=== PATIENT | female | born 1930 | race Caucasian/White ===

== ENCOUNTER → 2017-01-14 | Outpatient (CLI) | payer OTHER, BC ==
[~2017-01-14] MED LIST: ADULT LOW DOSE81 MG PO; APAP500 PO; AZITHROMYCIN 2250 MG; BIOTIN2500 MCG PO; CALCIUM 500 +1 EAC5 PO; CARBIDOPA-LEVO1 EAC1 PO; CELEBREX 200 M200 MG PO; CENTRUM SILVER1 EAC4 PO; COQ-10100 MG PO; HAIR, SKIN & N1 EAC1 PO; LEVOTHYROXINE0.05 MG PO; MIRALAX17 GM PO; NEURONTIN300 MG PO; NITROFURANTOIN100 MG PO; NORVASC2.5 MG PO; NORVASC5 MG PO; OMEPRAZOLE40 MG PO; PREDNISONE 10 M10 M1 PO; PRILOSEC 20 MG20 MG PO; SYNTHROID50 MCG PO; TRAMADOL 50 MG50 MG PO; ULTRAM 50MG TAB50 MG PO; XARELTO10 MG PO; ZOCOR 20 MG TAB20 M1 PO
== END ==
LOC: MRI 12:35
DX: S83.242A Other tear of medial meniscus, current injury, left knee, initial encounter (principal); M47.817 Spondylosis without myelopathy or radiculopathy, lumbosacral region; M62.81 Muscle weakness (generalized)

== ENCOUNTER 2017-08-13 10:50 | Inpatient (IN) | payer OTHER, BC ==
[~2017-08-13] VITALS: Ht 147.3 cm; Wt 46.3 kg
--- NOTE | ~2017-08-13 | HC ---
[facility] [address] CONSULTATION Name: JAIME REYNOLDS Room #: 515-P [facility] IN M.R.#: [id number] Admission: 08/13/17 Attend Phys: Gene Michaud MD Discharge: Date of : [birth year] Report #: [id number] THIS REPORT FOR: //name// CC: Gene Redmond NEUROBEHAVIORAL STATUS EXAM DATE OF CONSULTATION: 08/19/2017. ATTENDING PHYSICIAN: Gene Michaud M.D. PROGRAM HOST: Ayo Mueller, PhD. CLINICAL PRESENTATION: The patient is an 87-year-old female admitted to [facility] rehabilitation unit for a comprehensive inpatient rehabilitation program to improve functional mobility and activities of daily living and self-care secondary to deficits associated with Parkinson's disease. Her diagnoses on admission include rhabdomyolysis, dehydration, urinary tract infection, gait instability with fall at her home, multiple contusions and abrasions, history of neuropathic pain, hypothyroidism and hypertension. The patient had a fall in her home and was found by her tobacco primer machine operator. She is reported to have been down approximately 9-10 hours. A complete description of her medical condition, history and medications can be found in her medical record. Neuropsychological consultation was requested to provide assistance in the assessment of cognitive and emotional status and to provide recommendations and services. Prior to this most recent medical event, she was living independently in her own home. The patient utilizes a kiln head house operator 2 times a week. She lives alone in the home. There is a niece reported to have been involved in her care. The patient was seen in 2015 for a knee arthroplasty and subsequent deterioration from Parkinson's disease. She has 3 stepchildren. The patient was at age 49 and has no biological children. Two stepchildren are reported to be involved in her care. The patient's about 3 years ago. She is a high school graduate. 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 TECHNIQUES UTILIZED: Clinical interview, review of medical records, staff consultation and behavioral observation, mini mental status exam 2 standard version and clock drawing. EXAMINATION FINDINGS: The patient was alert during the interview. However, she was irritable and initially oppositional to participating in the assessment. However, she eventually agreed to comply with the assessment. She does not describe auditory or visual hallucinations. There is no evidence of thought disorder. The patient shows auditory comprehension within normal limits. There [address] [address] CONSULTATION Name: RODOLFOJAIME J Room #: 515-P [facility] IN ..#: [id number] Admission: 08/13/17 Attend Phys: Gene Michaud MD Discharge: Date of : [birth year] Report #: [id number] is no evidence of aphasia. Her thoughts are logical and goal oriented. The patient is irritable. She describes frustration about limitations on her freedom of movement. She does not report difficulty with sleep, appetite, memory or word finding. Cognitive deficits are associated to normal changes that she attributes to age. The patient does report increased fatigue and subjective feelings of depression and acknowledges some irritability in regard to the limit her limitations from Parkinson's disease. Decreased insight into the extent of cognitive dysfunction is suggested. Her performance on the MMSE 2 brief version is in the mild range of impairment with a raw score of 13-16, T score of 38, percentile rank of 12. She was 3/3 for initial registration, 5/5 for orientation to time and place. She was 0/3 for immediate recall of 3 items after a brief time delay and distraction. Her performance on the MMSE 2 standard version was 23 of 30, which is a T score of 36 and percentile rank of 8, which is in the borderline range. She was 2/5 for serial sevens, 2/2 for naming, 1/1 for repetition, 3/3 for auditory comprehension. She could read and follow a single command. She is also able to write a sentence. The patient was unable to copy a simple geometric design. The patient was able to draw the face of a clock and place the numbers appropriately. However, she was unable to accurately place the hands of a clock at a designated time. The patient is showing deficits in immediate memory, sustained attention, concentration and visual spatial organization. Impaired functioning and clock drawing is often seen with deficits within the medial temporal lobe and semantic knowledge. DIAGNOSTIC IMPRESSION: Neurocognitive disorder, most likely due to or possibly due to Parkinson's disease, with decreased insight and irritability -- extent to be determined, likely in the mild to moderate range. Adjustment disorder with anxiety and depressed mood. RECOMMENDATIONS: The patient is presenting with increased irritability, likely associated with diminished sense of control over the environment and as a result of Parkinson's disease and increased need for environmental support. She is unlikely to ask for the help that is needed. Increased environmental support will be necessary for her to maintain safety. The patient will likely require assistance in the management of medications as well as nutrition and financial decision making in order to maintain safety. She will benefit from opportunities to have increased influence over her environment. Verbal praise and complements about participation in therapies and an emphasis on the strengths that she shows during therapies will also improve her compliance. [facility] [address] [place] [address] CONSULTATION Name: JAIME REYNOLDS Room #: 515-P ADM IN M.R.#: [id number] Admission: 08/13/17 Attend Phys: Gene Michaud MD Discharge: Date of : [birth year] Report #: [id number] Thank you very much for allowing me to provide the consultation on this patient. By: [id number] Ayo Mueller, PhD /nt
--- NOTE | ~2017-08-13 | H ---
[facility] [place] [address] HISTORY AND PHYSICAL Name: JAIME REYNOLDS Room #: 515-P ADM IN .R.#: [id number] Admission: 08/13/17 Attend Phys: Gene Michaud MD Discharge: Date of : [birth year] Report #: [id number] THIS REPORT FOR: //name// CC: Gene Redmond DATE OF SERVICE: 08/14/2017 HISTORY OF PRESENT ILLNESS: The patient is an 87-year-old white female who has moderate to severe Parkinson's disease and lives in her own home. She had a fall and was unable to get up and was admitted to the acute hospital. Her mechanical integrity specialist had found her. She may have been down as long as 9-10 hours. She was diagnosed with a urinary tract infection with dehydration and mild rhabdomyolysis. She had an abnormal EKG and had a normal echo. Her urine grew out Klebsiella and she was treated with antibiotics. She was noted to have multiple contusions and abrasions from the fall. She was noted to have a significant functional decline and has now been admitted for an acute in-hospital inpatient rehabilitation stay. PAST MEDICAL HISTORY: Parkinson's disease. She has had a prior total knee replacement, history of transitional cell CA of the bladder, cataract surgery of both eyes, osteoporosis, hypertension, hypothyroidism. MEDICATIONS: Please see the full medication listing. Each of these was individually reconciled and includes vitamins herbals and supplements. ALLERGIES: ADHESIVE TAPE, CODEINE, RECORDED HISTORY OF SULFA ALLERGY. SOCIAL HISTORY: , lives alone in a house, 3 steps in, 16 inside, has a executive housekeeper 2 times a week, niece involved. This is noted to be a split level house with two stair glides. HABITS: Remote tobacco history. Some social ETOH usage. REVIEW OF SYSTEMS: No complaints of chest pain, shortness of breath, abdominal discomfort. She has some discomfort with her multiple contusions. She has a prior history of some neuropathic pain and was on Neurontin. FAMILY HISTORY: Noncontributory. PHYSICAL EXAMINATION: GENERAL: An 87-year-old white female in no obvious distress. VITAL SIGNS: Last recorded temperature 98.9, pulse 84, respirations 18, blood pressure 168/82. GENERAL: The patient is alert. HEENT: Appeared to be benign except for some masked facies. [address] [address] HISTORY AND PHYSICAL Name: JAIME REYNOLDS Phylicia Room #: 515-P [facility] IN M.R.#: [id number] Admission: 08/13/17 Attend Phys: Gene Michaud MD Discharge: Date of : [birth year] Report #: [id number] CHEST: Sounded clear to auscultation. CARDIOVASCULAR: Regular rate and rhythm. ABDOMEN: Bowel sounds positive, nontender. GENITOURINARY AND RECTAL: Deferred. EXTREMITIES: She does have some cogwheeling bilaterally involving the wrists and elbows. She does have some tremors noted. Strength is a grade 4-/5. Lower extremities, prior knee incision is well healed. Strength is grade 3+ to 4-/5. She does have some bradykinesia and slowness of movement. She is contact guard sit to stand and needs assistance for short distance walker ambulation. ASSESSMENT: An 87-year-old white female with the following problem list: 1. Parkinson's disease. 2. Rhabdomyolysis. 3. Dehydration. 4. Urinary tract infection. 5. Gait instability with fall at home. 6. Multiple contusions and abrasions. 7. History of neuropathic pain for which she has been on Neurontin. 8. Hypothyroidism. 9. Hypertension. PLAN: The patient is admitted for acute in-hospital inpatient rehabilitation. From a postadmission physician evaluation perspective, there are no relevant changes since the preadmission screening. Please see the above review of prior and current medical and functional conditions and comorbidities. Please see the patient's previous and current functional status. As far as risk of complications, the patient has multiple medical comorbidities as noted above. Initial plan of care involves the interdisciplinary acute inpatient rehabilitation program with the goal of maximizing the patient's functional independence. Measurable functional goals would be for the patient to improve her overall strength and endurance, functional mobility and ADLs, so that she can return back to the home setting. Prognosis is reasonably good with estimated length of stay probably at least 7-10 days and potentially longer pending progress. Potential barriers would include the patient's medical comorbidities and decreased functional status. The patient meets diagnostic criteria for an acute in-hospital inpatient rehabilitation stay. She meets medical necessity criteria. She does have the tolerance for an acute rehab stay and has appropriate discharge goals back to the home setting. <ELECTRONICALLY SIGNED> By: Gene Michaud MD 08/23/17 1108 1115 1135 Gene Michaud MD /[facility]
--- NOTE | ~2017-08-13 | PLAN ---
[facility] [place] [address] REHAB UNIT PLAN OF CARE Name: JAIME REYNOLDS Room #: 515-P ADM IN M.R.#: [id number] Admission: 08/13/17 Attend Phys: Gene Michaud MD Discharge: Date of : [birth year] Report #: [id number] THIS REPORT FOR: //name// CC: Gene Redmond DATE OF SERVICE: 08/16/2017 SUBJECTIVE: The patient is seen back today in followup. She is in no distress. Temperature 97.9, pulse 77, respirations 20, blood pressure 125/92. She has been involved in therapies with transfers min assist. Gait min assist 150 feet front-wheeled walker. In occupational therapy; lower body dressing is min assist, upper body dressing was mod assist. ASSESSMENT: 1. Parkinson's disease. 2. Rhabdomyolysis. 3. Dehydration. 4. Urinary tract infection. 5. Gait instability with fall at home. 6. Multiple contusions and abrasions. 7. History of neuropathic pain for which she has been on Neurontin. 8. Hypothyroidism. 9. Hypertension. PLAN: The overall plan of care, this is based on the preadmission screen, post-admission physician evaluation and information garnered from therapy assessments. 1. Estimated length of stay is probably at least 7-10 days and likely longer as warranted. 2. Medical prognosis is reasonably good. 3. Anticipated interventions includes the interdisciplinary acute inpatient rehabilitation program with the goal of maximizing the patient's functional independence, so that she can hopefully return back to her prior living situation. PT and OT are involved. Nursing is assisting regarding medication management, skin care prophylaxis, bowel and bladder issues and nursing education. The tour consultant physicians are involved. 4. Anticipated functional outcomes would be for the patient to become modified independent with transfers, mobility and ADL issues at least at the walker level. 5. Discharge destination is back home where she lives alone in a house. Niece is involved. 6. Expected therapy by discipline includes PT and OT 1-1/2 hours per day each [address] [address] REHAB UNIT PLAN OF CARE Name: JAIME REYNOLDS Room #: 515-P [facility] IN ..#: [id number] Admission: 08/13/17 Attend Phys: Gene Michaud MD Discharge: Date of : [birth year] Report #: [id number] five days a week throughout the duration of the acute inpatient rehabilitation stay. <ELECTRONICALLY SIGNED> By: Gene Michaud MD 08/23/17 1108 [id number] [id number] Gene Michaud MD /[facility]
[~2017-08-13 10:50] MED LIST changes: +PANTOPRAZOLE SO40 M1 PO
[2017-08-13] MEDS ORDERED: CEFUROXIME250 MG PO (16:04)
[2017-08-13] MEDS ORDERED: NORVASC2.5 MG PO (16:05)
[2017-08-13 16:34] VITALS: BP 146/56
[2017-08-13 20:04] VITALS: BP 178/84
[2017-08-13 22:00] VITALS: BP 168/82
[2017-08-14 06:26] LABS: HEMATOCRIT 36.7 % (37.0-47.0); HEMOGLOBIN 12.1 gm/dL (12.0-15.0); MCH 30.8 pg (26.0-34.0); MCHC 32.9 g/dL (28.0-37.0); MCV 93.7 fL (80.0-100.0); RBC 3.91 mil/uL (4.20-5.00); RDW 13.7 % (10.5-14.5); WBC 8.7 thou/uL (4.0-11.0)
[2017-08-14 06:38] LABS: CALCIUM 10.5 mg/dL (8.5-10.1); CREATININE 0.8 mg/dL (0.6-1.0); POTASSIUM 3.9 mmol/L (3.5-5.1)
[2017-08-14 08:56] VITALS: BP 134/63
[2017-08-14 09:27] LABS: CALCIUM 9.5 mg/dL (8.5-10.1); CREATININE 0.7 mg/dL (0.6-1.0); PHOSPHORUS 3.4 mg/dL (2.5-4.9)
[2017-08-14 21:25] VITALS: BP 151/58
[2017-08-15 05:07] LABS: CALCIUM IONIZED* 5.6 mg/dL (4.5-5.6)
[2017-08-15 08:38] VITALS: BP 149/66
[2017-08-15 19:33] VITALS: BP 125/92
[2017-08-16 08:00] VITALS: BP 138/59
[2017-08-16 21:03] VITALS: BP 147/66
[2017-08-17 07:30] VITALS: BP 159/54
[2017-08-17 20:00] VITALS: BP 123/51
[2017-08-17 20:19] VITALS: BP 123/51
[2017-08-18 08:00] VITALS: BP 120/35
[2017-08-18 09:27] VITALS: BP 121/51
[2017-08-18 20:40] VITALS: BP 119/57
[2017-08-19 08:00] VITALS: BP 130/57
[2017-08-19 20:03] VITALS: BP 124/52
[2017-08-20 07:30] VITALS: BP 112/62
[2017-08-20 20:06] VITALS: BP 95/45
[2017-08-21 08:10] VITALS: BP 176/66
[2017-08-21 20:00] VITALS: BP 139/62
[2017-08-21 20:20] VITALS: BP 139/62
[2017-08-22 08:15] VITALS: BP 142/61
[2017-08-22] MEDS ORDERED: COLACE 100 MG100 MG PO (10:49)
[2017-08-22] MEDS ORDERED: VITAMIN D1000 UNI1 PO (10:50)
[2017-08-22 15:03] LABS: CALCIUM 9.4 mg/dL (8.5-10.1); CREATININE 0.7 mg/dL (0.6-1.0); POTASSIUM 4.2 mmol/L (3.5-5.1)
[2017-08-22 15:55] LABS: URINE BILIRUBIN NEGATIVE (Negative); URINE BLOOD NEGATIVE (Negative); URINE COLOR YELLOW; URINE GLUCOSE-RANDOM* NEGATIVE (Negative); URINE KETONES NEGATIVE (Negative); URINE PROTEIN (DIPSTICK) NEGATIVE (Negative); URINE SPECIFIC GRAVITY <= 1.005 (1.003-1.035); URINE UROBILINOGEN 0.2 E.U./dl (0.2-1.0)
[2017-08-22 15:57] LABS: URINE LEUKOCYTES-REFLEX TRACE (Negative)
[2017-08-22 20:14] VITALS: BP 106/41
[2017-08-23 07:30] VITALS: BP 102/57
[2017-08-23 09:33] VITALS: BP 102/57
[2017-08-23 11:55] VITALS: BP 102/57
[2017-08-23 12:02] VITALS: BP 102/57
[2017-08-23 13:08] VITALS: BP 102/57
== END 2017-08-23 13:14 | disposition home health service (06) | DRG 57 ==
LOC: ENTRNSPT 08-23 12:58 → EDTRNSPTSTS 08-23 13:01
PROVIDERS: Internal Medicine; Physical Medicine & Rehabilitation
DX: G20 Parkinson's disease (principal); M62.82 Rhabdomyolysis; N39.0 Urinary tract infection, site not specified; E86.0 Dehydration; T14.8XXA Other injury of unspecified body region, initial encounter; E03.9 Hypothyroidism, unspecified; I10 Essential (primary) hypertension; R41.9 Unspecified symptoms and signs involving cognitive functions and awareness; F43.20 Adjustment disorder, unspecified; F41.9 Anxiety disorder, unspecified; F39 Unspecified mood [affective] disorder; Z96.659 Presence of unspecified artificial knee joint; M81.0 Age-related osteoporosis without current pathological fracture; Z60.2 Problems related to living alone; D64.9 Anemia, unspecified; E83.52 Hypercalcemia; B96.1 Klebsiella pneumoniae [K. pneumoniae] as the cause of diseases classified elsewhere; Z88.2 Allergy status to sulfonamides; Z88.8 Allergy status to other drugs, medicaments and biological substances; Z85.51 Personal history of malignant neoplasm of bladder; Z98.42 Cataract extraction status, left eye; Z98.41 Cataract extraction status, right eye; Z88.6 Allergy status to analgesic agent; Z79.899 Other long term (current) drug therapy; W18.39XA Other fall on same level, initial encounter; Y93.89 Activity, other specified; Y92.89 Other specified places as the place of occurrence of the external cause; Y99.8 Other external cause status
CPT/HCPCS: 10112

== ENCOUNTER 2018-03-06 21:35 | Inpatient (IN) | payer OTHER, BC ==
[~2018-03-06] VITALS: Ht 147.3 cm; Wt 41.3 kg
--- NOTE | ~2018-03-06 | 2DMMODE ---
[facility] [address] [place] [address] 2 D/M-MODE ECHOCARDIOGRAM Name: RODOLFOJAIME J Room #: 430-P ADM IN [facility]#: [id number] Admission: 03/06/18 Attend Phys: Joseph Redmond MD Discharge: Date of : [birth year] Date of Service: 03/07/18 1602 Report #: [id number] THIS REPORT FOR: //name// APPROVED REPORT Study performed: 03/07/2018 15:01:30 EXAM: Comprehensive 2D, Doppler, and color-flow Echocardiogram Patient Location: Bedside Room #: 430 Status: routine BSA: 1.29 HR: 78 bpm BP: 166/48 mmHg Other Information Study Quality: Adequate Indications Aortic Valve Disease 2D Dimensions RVDd: 29.58 mm LVEF(%): 60.01 (>50%) IVSd: 12.52 (7-11mm) LVOT Diam: 17.82 (18-24mm) LVDd: 32.75 mm PWd: 13.80 (7-11mm) Ascending Ao: 25.74 (22-36mm) LVDs: 22.60 (25-40mm) Aortic Root: 22.83 mm IVC: 13.00 mm Cabrera's LVEF: 60.01 % Volumes Left Atrial Volume (Systole) Single Plane 4CH: 28.68 mL Single Plane 2CH: 24.31 mL LA ESV Index: 27.00 mL/m2 Aortic Valve AoV Peak Pino.: 2.16 m/s AO Peak Gr.: 18.65 mmHg LVOT Max P.72 mmHg AO Mean Gr.: 9.68 mmHg LVOT Mean P.85 mmHg AO V2 Mean: 1.44 m/s LVOT Max V: 0.96 m/s AO V2 VTI: 47.20 cm LVOT Mean V: 0.63 m/s JUVENTINO (VTI): 1.18 cm2 LVOT V1 VTI: 22.38 cm JUVENTINO Vmax: 1.11 cm2 SV (LVOT): 55.81 mL [facility] [place] [address] 2 D/M-MODE ECHOCARDIOGRAM Name: JAIME REYNOLDS Room #: 430-P [facility] IN [facility].#: [id number] Admission: 03/06/18 Attend Phys: Joseph Redmond MD Discharge: Date of : [birth year] Date of Service: 03/07/18 1602 Report #: [id number] Mitral Valve E/A Ratio: 0.8 MV Decel. Time: 347.11 ms MV E Max Pino.: 0.90 m/s MV A Pino.: 1.06 m/s MV PHT: 100.66 ms IVRT: 124.57 ms Pulmonary Valve PV Peak Pino.: 0.82 m/s PV Peak Gr.: 2.70 mmHg Pulmonary Vein P Vein S: 0.53 m/s P Vein A: 0.22 m/s P Vein D: 0.21 m/s P Vein A Dur.: 124.6 msec P Vein S/D Ratio: 2.52 Tricuspid Valve TR Peak Pino.: 2.16 m/s TR Peak Gr.: 18.65 mmHg PA Pressure: 24.00 mmHg Left Ventricle The left ventricle is normal size. There is normal LV segmental wall motion. Mild concentric left ventricular hypertrophy. The left ventricular systolic function is normal. The left ventricular ejection fraction is within the normal range. LVEF is 55-60%. Grade I - abnormal relaxation pattern. Right Ventricle The right ventricle is normal size. The right ventricular systolic function is normal. Atria The left atrium size is normal. The right atrium size is normal. Aortic Valve Aortic valve is calcified. No aortic regurgitation is present. Mild aortic stenosis. Mitral Valve The mitral valve leaflets are mildly calcified and thickened. Trace mitral regurgitation. No evidence of mitral valve stenosis[place] [address] 2 D/M-MODE ECHOCARDIOGRAM Name: RODOLFOJAIME Room #: 430-P [facility] IN M.R.#: [id number] Admission: 03/06/18 Attend Phys: Joseph Redmond MD Discharge: Date of : [birth year] Date of Service: 03/07/18 1602 Report #: [id number] The tricuspid valve is normal in structure. There is trace tricuspid regurgitation. Estimated PAP 24 mmHg. There is no pulmonary hypertension. Pulmonic Valve The pulmonary valve is normal in structure. There is no pulmonic valvular regurgitation. Great Vessels The aortic root is normal in size. IVC is normal in size and collapses >50% with inspiration. Pericardium There is no pericardial effusion. <Conclusion> The left ventricular systolic function is normal. Mild concentric left ventricular hypertrophy. There is normal LV segmental wall motion. LVEF is 55-60%. Mild diastolic dysfunction Aortic valve is calcified. Mild aortic stenosis, no insufficiency. The mitral valve leaflets are mildly calcified and thickened. Trace mitral regurgitation. There is trace tricuspid regurgitation. Estimated pulmonary artery pressure of 24 mmHg. There is no pericardial effusion. <ELECTRONICALLY SIGNED> By: Inocente Colón MD, FACC 03/07/18 160 01 01 Inocente Colón MD, FACC /INF
--- NOTE | ~2018-03-06 | H ---
[facility] [place] [address] HISTORY AND PHYSICAL Name: JAIME REYNOLDS Room #: 430-P ADM IN M.R.#: [id number] Admission: 03/06/18 Attend Phys: Josehp Redmond MD Discharge: Date of : [birth year] Report #: [id number] THIS REPORT FOR: //name// CC: Gene Redmond DATE OF SERVICE: 03/07/2018 CHIEF COMPLAINT: Multiple falls. HISTORY OF PRESENT ILLNESS: The patient is an 87-year-old female who was sent to the Emergency Room after she called me and told me that she had been falling down and the paramedics have been out to see her several times and she was now having problems with shaking chills. She actually could not remember how many times she had fallen lately, but the current story is that she has fallen at least 5 times in the last 3 days. She is unable to get herself up and I was not notified of any of these falls until the patient herself called me the afternoon of this admission. I called her niece who got in touch with further family members and they brought her to the Emergency Room for further evaluation and treatment. The patient was seen there and evaluated and preliminary workup looks fairly benign, other than multiple areas of trauma and no overt fractures. The patient, however, is unable to get up from the gurney and is unable to ambulate while in the Emergency Room. She is admitted for further evaluation and treatment. PAST MEDICAL HISTORY: Lengthy and includes severe lumbar radiculopathy, especially on the right side from neural foraminal stenosis and osteoarthritis. She has been seen multiple times in the Pain Clinic and by Orthopedic and Neurosurgical specialist in the past, who felt that she was not a good candidate for surgery. She has been using a roller walker for ambulation at least 5 years. In the last 2 years, she moved from her [facility] home into a [address]. She lives in an independent apartment at this time. Other past medical history includes history of recurrent bladder cancer. She is followed by Dr. Gene Perry for this. Hysterectomy for benign reasons. Osteoarthritis in multiple sites. 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 Gastroesophageal reflux disease and hiatal hernia. Parkinson disease for at least 5 years. Colonoscopies in the past, cataract surgeries in the past and right knee replacement in 2015. Carotid occlusive disease bilaterally, no prior interventions. She has evidence of myocardial infarction on EKGs going back to several years, but echocardiogram looked normal the last time it was assessed. ALLERGIES: THE PATIENT IS ALLERGIC TO SULFA, ANTIBIOTICS AND TO ADHESIVE TAPE AND CODEINE. THE LATTER CAUSES HER NAUSEA AND VOMITING. THE SULFA CAUSES HER TO HAVE A RASH. Interestingly, she tolerates Celebrex without a problem. [address] [address] HISTORY AND PHYSICAL Name: JAIME REYNOLDS Phylicia Room #: 430-P [facility] IN ..#: [id number] Admission: 03/06/18 Attend Phys: Joseph Redmond MD Discharge: Date of : [birth year] Report #: [id number] MEDICATIONS: Her medications at time of admission includes pantoprazole, amlodipine, docusate, cholecalciferol, Celebrex, acetaminophen, levothyroxine, Sinemet 10/100, multivitamin, gabapentin, MiraLax and tramadol. FAMILY HISTORY: Not contributory. SOCIAL HISTORY: The patient is after her committed suicide over 5 years ago. She smoked in the very distant past, but she has no history of problems with alcohol or recreational drugs and does not use any of them at this time. REVIEW OF SYSTEMS: The patient reports she has had increasing dizziness lately and is concerned that "that little pink pill" is the cause. She states that she was recently given that medicine by her neurologist and it was taken away because she was having vomiting and recently, it started up again. She cannot tell me the name of the medicine; I am suspicious that it is in fact gabapentin. No headaches or vision changes. No difficulties with swallowing or speaking. No shortness of breath or chest pain. She has chronic low back pain, which is unchanged. She has chronic weakness in the right lower extremity. She has chronic difficulty with ambulation, both from Parkinson disease and the lumbar radiculopathy. She reports a significant weight loss. Her current weight was 91 pounds in the Emergency Room and she states that 5 years ago, she weighed 126 pounds, at the time of her 's . She was unaware that she had lost all this weight. PHYSICAL EXAMINATION: VITAL SIGNS: In the Emergency Room showed that her pulse oximetry supine is 100% on room air, respirations 22 per minute, pulse 66, blood pressure 127/96 and the temperature is 36.4 degrees Celsius. GENERAL: The patient is a pleasant, but tired-appearing elderly white female. SKIN EXAMINATION: Shows general dryness and diffuse developing alopecia. HEENT: The extraocular muscles are intact. The oropharynx is dry and pink. No lesions, no exudates. Sinuses are nontender. Hearing is grossly normal. She has a very soft voice chronically. NECK: Without adenopathy or thyromegaly. Some tenting of the skin is noted. She has a distinct left carotid bruit, but not on the right. No adenopathy is palpated in the neck, supraclavicular, axillary or groin areas. LUNGS: Clear to auscultation bilaterally. CARDIAC EXAMINATION: Reveals a regular rhythm with a 1-2/6 systolic ejection murmur at the apex. ABDOMEN: Soft. Bowel sounds are present. Abdomen is flat. No visceromegaly or masses are noted. EXTREMITIES: There is no cyanosis, clubbing or peripheral edema. She has generalized weakness in the lower extremities, much more so on the right than the left and she has fairly good welder apprentice arc strength in both upper extremities. No [facility] [address] [place] [address] HISTORY AND PHYSICAL Name: JAIME REYNOLDS Phylicia Room #: 430-P [facility] IN ..#: [id number] Admission: 03/06/18 Attend Phys: Joseph Redmond MD Discharge: Date of : [birth year] Report #: [id number] focal deficits of sensation in upper or lower extremities. Gait could not be assessed because the patient was too weak to hold herself up. There is no Babinski sign on either side. Romberg could not be tested. RECTAL EXAMINATION: Not performed today. BREAST EXAMINATION: Not performed today. LABORATORY DATA: In the Emergency Room, urinalysis was normal. CBC with differential showed 8300 white blood cells with an ANC of 5700. Her hemoglobin was 10.2, with a normal of 12-15. Her MCV was normal at 93.4 with an RDW of 13.6, also in the normal range. The platelet count was 237,000. Differential looked fairly normal with 68 segs, 23 lymphs, 6.3 monocytes, 1.4 eos and 1.2 basophils. The basic metabolic panel showed sodium of 139, potassium 3.4, chloride of 103, bicarbonate of 26, BUN of 25, creatinine 0.8 with an anion gap of 10, nonfasting glucose of 135 and calcium of 10.0. Albumin was not measured. The estimated GFR was 68. Troponin was less than 0.04. Chest x-ray was obtained that showed no acute cardiopulmonary abnormalities. The EKG in the Emergency Room showed sinus rhythm with a rate of 79 beats per minute, ventricular trigeminy and anteroseptal infarct that was age indeterminate and mention of comparison with prior EKG in 12/2017 showed that PVCs were no present. The physician's diver assistant in the Emergency Room ordered an MRI scan of the lumbar spine without contrast and the impression showed "severe multilevel lumbar spondylosis, chronic, without acute fracture or other acute process identified". ASSESSMENT AND PLAN: 1. Frequent falls with general debility and weakness - this may all be due to advanced Parkinson disease or she may have a secondary issue. I have discontinued the gabapentin for fear that it might be part of the problem. I feel that the patient has been maryjo so far that she has not sustained any major damaging injuries, but she is certainly not safe to return to an independent living apartment at this time. Therefore, I have made her a full admission and plan to look for other treatable causes while starting her on a higher dose of Sinemet and requesting consultation with a occupational rehabilitation aide and starting physical and occupational therapy and a cognitive evaluation with speech therapy. 2. Right foot pain without obvious problem. We will get an x-ray of her right foot. 3. Approximately 30-pound weight loss in the last 5 years, unintentional - supplements have been added to the patient's dietary regimen. I will have her weight daily to see how she does with more supportive care in the short term. It is clear to me, however, that she simply cannot continue in an independent facility. She will, at the very least, need an assisted care facility provided she can improve to that level. I spoke with the patient at length about this and her best current options are either an inpatient rehab stay or a detention unit stay. See consult with Dr. Gene Michaud for further information regarding this decision-making process. [facility] [place] [address] HISTORY AND PHYSICAL Name: JAIME REYNOLDS Room #: 430-P ADM IN M.R.#: [id number] Admission: 03/06/18 Attend Phys: Joseph Redmond MD Discharge: Date of : [birth year] Report #: [id number] 4. History of bladder cancer. I did fern picker the phone and called Dr. Perry's office and canceled her appointment today. This can be rescheduled at a later date. 5. Lumbar radiculopathy, right greater than left side. 6. Left carotid bruit. We will get carotid Doppler for followup. She does have known carotid occlusive disease, although it has not been severe enough to warrant intervention. She also has subclavian stenosis and proximal vertebral artery stenosis in the past. Vertebrobasilar insufficiency is not an unreasonable consideration in this unfortunate patient's circumstances. 7. Hypertension. We will obtain orthostatics to make sure that the patient has not developed some sort of dysautonomia, requiring less strict blood pressure-lowering therapies. SUMMARY: In addition to the aforementioned testing, the patient will be having echocardiogram, carotid Doppler, EEG, nocturnal and ambulatory oximetry as well as be observed for changes in her medication regimen. <ELECTRONICALLY SIGNED> By: Joseph Redmond MD 03/10/18 [id number] Joseph Redmond MD /tamara
--- NOTE | ~2018-03-06 | EKG ---
[place] [address] [facility] [place] [address] ELECTROCARDIOGRAM REPORT Name: RODOLFOJAIME Room #: 430-P ADM IN ..#: [id number] Admission: 03/06/18 Attend Phys: Joseph Redmond MD Discharge: Date of : [birth year] Report #: [id number] THIS REPORT FOR: //name// [facility] ED Test Date: 2018-03-06 Test Time: 22:38:28 Pat Name: JAIME REYNOLDS Department: Room: Gender: F Associate Justice: ELDON : 1930 Requested By: Jose A Osorio Order Number: [id number] MD: Inocente Colón Measurements Intervals [place] Rate: 79 P: 107 PA: 168 QRS: 50 QRSD: 87 T: 43 QT: 388 QTc: 445 Interpretive Statements Sinus rhythm Ventricular trigeminy Anteroseptal infarct, age indeterminate Artifact in lead(s) I,II,aVF,V1,V2,V4,V5,V6 Compared to ECG 01/20/2018 16:07:36 Ventricular premature complex(es) now present Electronically Signed On 03-07-2018 8:32:20 CDT by Inocente Colón [email or web address] <ELECTRONICALLY SIGNED> By: Inocente Colón MD, [facility] 03/07/18 0832 [id number] 37 Inocente Colón MD, [facility] /EPI
--- NOTE | ~2018-03-06 | EEG ---
[facility] [place] [address] ELECTROENCEPHALOGRAM Name: JAIME REYNOLDS Room #: 430-P [facility] IN M.R.#: [id number] Admission: 03/06/18 Attend Phys: Joseph Redmond MD Discharge: Date of : [birth year] Report #: [id number] THIS REPORT FOR: //name// CC: Joseph Redmond MD HISTORY: The patient is an 87-year-old female with weakness. An EEG is requested for further evaluation. DESCRIPTION: The awake record consists of symmetric kwe-aj-wwprybqs amplitude 4-iaxlo-wqj-second posterior dominant rhythm, which attenuates with eye opening. During the recording, photic stimulation was performed and was non-activating. Stage I sleep was characterized by attenuation of the background record. No focal abnormalities or epileptiform discharges were noted. Stage II sleep was not recorded. IMPRESSION: This is an abnormal adult awake to stage I sleep record because of mild slowing of the posterior dominant rhythm. This record is consistent with mild diffuse cerebral dysfunction and is a nonspecific finding. No focal abnormalities or epileptiform discharges were noted. By: [id number] Nahed Islas DO /nt
[~2018-03-06 21:35] MED LIST changes: +CEFUROXIME250 MG PO; +COLACE 100 MG100 MG PO; +VITAMIN D1000 UNI1 PO
[2018-03-06 21:52] VITALS: BP 127/96
[2018-03-06 22:21] LABS: ABSOLUTE NEUTROPHILS 5.7 thou/uL (1.4-8.2); BASOPHILS 1.2 % (0.0-2.0); EOSINOPHILS 1.4 % (0.0-3.0); HEMATOCRIT 30.2 % (37.0-47.0); HEMOGLOBIN 10.2 gm/dL (12.0-15.0); LYMPHOCYTES 23.1 % (24.0-44.0); MCH 31.7 pg (26.0-34.0); MCV 93.4 fL (80.0-100.0); MONOCYTES 6.3 % (1.0-8.0); PLATELET COUNT 237 thou/uL (150-400); RBC 3.23 mil/uL (4.20-5.00); RDW 13.6 % (10.5-14.5); WBC 8.3 thou/uL (4.0-11.0)
[2018-03-06 22:31] LABS: ANION GAP 10 mmol/L (7-16); BUN 25 mg/dL (7-18); CHLORIDE 103 mmol/L (98-107); CO2 26 mmol/L (21-32); CREATININE 0.8 mg/dL (0.6-1.0); GLUCOSE 135 mg/dL (74-106); POTASSIUM 3.4 mmol/L (3.5-5.1); SODIUM 139 mmol/L (136-145)
[2018-03-06 22:39] LABS: TROPONIN-I < 0.04 ng/mL (<0.06)
[2018-03-06 22:42] LABS: URINE BILIRUBIN NEGATIVE (Negative); URINE BLOOD NEGATIVE (Negative); URINE CLARITY CLEAR; URINE COLOR YELLOW; URINE GLUCOSE-RANDOM* NEGATIVE (Negative); URINE KETONES NEGATIVE (Negative); URINE LEUKOCYTES-REFLEX NEGATIVE (Negative); URINE NITRITE-REFLEX NEGATIVE (Negative); URINE PROTEIN (DIPSTICK) NEGATIVE (Negative); URINE UROBILINOGEN 0.2 E.U./dl (0.2-1.0)
[2018-03-06 23:01] VITALS: BP 127/96
[2018-03-06 23:35] VITALS: BP 127/96
[2018-03-07 00:20] VITALS: BP 183/71
[2018-03-07 04:15] VITALS: BP 149/71
[2018-03-07 04:34] VITALS: BP 149/71
[2018-03-07 08:23] VITALS: BP 166/48
[2018-03-07 12:45] LABS: BE(vivo) 1.7 mmol/L (-2 to +3); HCO3 24.8 mmol/L (22.0-26.0); PCO2 33.7 mmHg (35.0-45.0); PO2 88.3 mmHg (80.0-100.0); pH 7.484 (7.360-7.450); sO2 97.3 % (92.0-98.0)
[2018-03-07 13:06] LABS: TROPONIN-I < 0.04 ng/mL (<0.06)
[2018-03-07 20:10] VITALS: BP 117/55; BP 128/73; BP 91/49
[2018-03-08 03:56] LABS: ALBUMIN 3.4 g/dL (3.4-5.0); DIRECT BILIRUBIN < 0.1 mg/dL (<0.1-0.3); SGOT 16 U/L (15-37); SGPT 8 U/L (30-65); TOTAL BILIRUBIN 0.3 mg/dL (<0.1-1.0); TOTAL PROTEIN 6.2 g/dL (6.4-8.2)
[2018-03-08 04:16] LABS: FOLIC ACID 11.1 ng/mL (8.6-58.9); TSH 5.89 uIU/mL (0.358-3.740)
[2018-03-08 04:34] VITALS: BP 140/55
[2018-03-08 07:58] VITALS: BP 101/51
[2018-03-08 15:08] LABS: GLYCOHEMOGLOBIN (HGB A1C) 5.5 % (4.8-5.6)
[2018-03-08 16:50] VITALS: BP 106/41
[2018-03-08 16:51] VITALS: BP 107/39; BP 117/45
[2018-03-08 19:34] VITALS: BP 114/44
[2018-03-09 04:02] VITALS: BP 102/41
[2018-03-09 04:59] LABS: ABSOLUTE NEUTROPHILS 5.1 thou/uL (1.4-8.2); BASOPHILS 0.5 % (0.0-2.0); EOSINOPHILS 2.2 % (0.0-3.0); HEMATOCRIT 29.2 % (37.0-47.0); HEMOGLOBIN 9.8 gm/dL (12.0-15.0); LYMPHOCYTES 22.8 % (24.0-44.0); MCH 31.2 pg (26.0-34.0); MCHC 33.4 g/dL (28.0-37.0); MCV 93.4 fL (80.0-100.0); MONOCYTES 8.2 % (1.0-8.0); PLATELET COUNT 239 thou/uL (150-400); POLYS 66.3 % (36.0-66.0); RBC 3.13 mil/uL (4.20-5.00); RDW 13.9 % (10.5-14.5); WBC 7.7 thou/uL (4.0-11.0)
[2018-03-09 05:12] LABS: CALCIUM 9.2 mg/dL (8.5-10.1); CREATININE 0.9 mg/dL (0.6-1.0); POTASSIUM 4.3 mmol/L (3.5-5.1); TOTAL BILIRUBIN 0.2 mg/dL (<0.1-1.0); TOTAL PROTEIN 5.7 g/dL (6.4-8.2)
[2018-03-09 08:15] VITALS: BP 108/41
[2018-03-09 15:23] VITALS: BP 115/39
[2018-03-09 15:24] VITALS: BP 153/45
[2018-03-09 15:25] VITALS: BP 138/45
[2018-03-09 20:00] VITALS: BP 1117/44; BP 117/44; BP 146/82
[2018-03-10 04:30] VITALS: BP 117/44; BP 119/72
[2018-03-10 08:04] VITALS: BP 105/47
[2018-03-10] MEDS ORDERED: SINEMET CR 25-1 EACH PO ×2 (15:49→15:52)
[2018-03-10] MEDS ORDERED: SYNTHROID75 MCG PO (15:52)
== END 2018-03-10 16:10 | DRG 57 ==
LOC: ER 21:35 → 4E 22:52
PROVIDERS: Internal Medicine; Physician Assistant
DX: G20 Parkinson's disease (principal); Z68.1 Body mass index [BMI] 19.9 or less, adult; E44.1 Mild protein-calorie malnutrition; M47.26 Other spondylosis with radiculopathy, lumbar region; R29.6 Repeated falls; Z90.710 Acquired absence of both cervix and uterus; E89.0 Postprocedural hypothyroidism; M19.90 Unspecified osteoarthritis, unspecified site; K21.9 Gastro-esophageal reflux disease without esophagitis; Z96.651 Presence of right artificial knee joint; M48.061 Spinal stenosis, lumbar region without neurogenic claudication; R09.89 Other specified symptoms and signs involving the circulatory and respiratory systems; I10 Essential (primary) hypertension; R26.9 Unspecified abnormalities of gait and mobility; R00.8 Other abnormalities of heart beat; I49.3 Ventricular premature depolarization; T42.6X5A Adverse effect of other antiepileptic and sedative-hypnotic drugs, initial encounter; R41.89 Other symptoms and signs involving cognitive functions and awareness; W18.39XA Other fall on same level, initial encounter; Z92.21 Personal history of antineoplastic chemotherapy; Z87.01 Personal history of pneumonia (recurrent); Z98.42 Cataract extraction status, left eye; Z98.41 Cataract extraction status, right eye; Z79.899 Other long term (current) drug therapy; Z88.8 Allergy status to other drugs, medicaments and biological substances; Z88.2 Allergy status to sulfonamides; Z91.048 Other nonmedicinal substance allergy status; Z88.6 Allergy status to analgesic agent; I25.2 Old myocardial infarction; Z85.51 Personal history of malignant neoplasm of bladder; Y92.098 Other place in other non-institutional residence as the place of occurrence of the external cause; Z91.81 History of falling; Y93.89 Activity, other specified; Y99.8 Other external cause status
CPT/HCPCS: 10183

== ENCOUNTER 2018-10-04 17:13 | Emergency (ER) | payer OTHER, BC ==
[~2018-10-04] VITALS: Ht 147.3 cm; Wt 50.4 kg
[~2018-10-04 17:13] MED LIST changes: +SINEMET CR 25-1 EACH PO; +SYNTHROID75 MCG PO
[2018-10-04 17:14] VITALS: BP 146/66
[2018-10-04] MEDS ORDERED: MOBIC7.5 MG PO (17:26)
== END 2018-10-04 20:52 ==
LOC: ER 17:13
DX: S40.012A Contusion of left shoulder, initial encounter (principal); M19.90 Unspecified osteoarthritis, unspecified site; K21.9 Gastro-esophageal reflux disease without esophagitis; G20 Parkinson's disease; Z87.891 Personal history of nicotine dependence; Z91.048 Other nonmedicinal substance allergy status; Z88.2 Allergy status to sulfonamides; Z88.8 Allergy status to other drugs, medicaments and biological substances; Z88.5 Allergy status to narcotic agent; Z90.710 Acquired absence of both cervix and uterus; Z96.651 Presence of right artificial knee joint; Z90.89 Acquired absence of other organs; W18.39XA Other fall on same level, initial encounter; Y92.89 Other specified places as the place of occurrence of the external cause; Y93.89 Activity, other specified; Y99.8 Other external cause status

== ENCOUNTER 2018-12-13 13:47 | Emergency (ER) | payer OTHER, BC ==
[~2018-12-13] VITALS: Ht 147.3 cm; Wt 49.9 kg
[~2018-12-13 13:47] MED LIST changes: +MOBIC7.5 MG PO
[2018-12-13 15:50] VITALS: BP 128/43
== END 2018-12-13 15:50 ==
LOC: ER 13:47
DX: S01.01XA Laceration without foreign body of scalp, initial encounter (principal); M19.90 Unspecified osteoarthritis, unspecified site; K21.9 Gastro-esophageal reflux disease without esophagitis; Z87.01 Personal history of pneumonia (recurrent); Z90.710 Acquired absence of both cervix and uterus; E89.0 Postprocedural hypothyroidism; Z87.891 Personal history of nicotine dependence; Z88.2 Allergy status to sulfonamides; Z88.5 Allergy status to narcotic agent; Z88.8 Allergy status to other drugs, medicaments and biological substances; W01.0XXA Fall on same level from slipping, tripping and stumbling without subsequent striking against object, initial encounter; Y93.89 Activity, other specified; Y92.89 Other specified places as the place of occurrence of the external cause; Y99.8 Other external cause status